=== PATIENT | female | born 1955 | race Caucasian/White ===

== ENCOUNTER 2022-07-23 09:31 | Emergency (ER) | payer MEDICARE ==
--- NOTE | 2022-07-23 09:52 | ERPHSYRPT ---
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 She states that the left side of her face felt a little numb. She states her tetanus status is up-to-date and she is not on any anticoagulation therapy. Patient was wearing glasses and there was small abrasions on the bridge of her nose and around the eye on the left side. She denies chest pain. She denies shortness of breath and she denies abdominal pain. She has some abrasions to the palmar aspect of her hand since she fell forward. Patient then got up, walked to her car and drove into work. We placed a cervical collar on her when she arrived to the emergency department. Occurred: just prior to arrival Reason for Fall: lost balance, tripped Injuries/Pain Location: head, face, neck, upper extremity (Abrasions bilateral hands palmar aspect), back (Low back and coccyx), pelvis (Bilateral hips left greater than right) Loss of Consciousness: unsure Quality: aching Severity of Pain-Max: moderate Severity of Pain-Current: moderate Modifying Factors: Improves With: movement Associated Symptoms (Fall): back pain (Low back), extremity injury, headache, neck pain Allergies/Adverse Reactions: meperidine [From Demerol] Allergy (Verified 07/23/22 09:54) Home Medications: Levothyroxine Sodium 88 Mcg [Synthroid 88 Mcg] 88 mcg PO DAILY 07/23/22 [History] Multivit-Minerals/Folic Acid [Multivitamin Gummies] 1 tab PO DAILY 07/23/22 [History] Travel Risk - International Travel Have you traveled outside of the country in past 3 weeks: No - Coronavirus Screening Are you exhibiting any of the following symptoms?: No Close contact with a COVID-19 positive Pt in past 14-21 Days: No - Review of Systems Constitutional: No Symptoms Eyes: No Symptoms Ears, Nose, & Throat: Other (Punctate bridge of nose laceration/abrasion left forehead abrasion) Respiratory: No Symptoms Cardiac: No Symptoms Abdominal/Gastrointestinal: No Symptoms Genitourinary Symptoms: No Symptoms Musculoskeletal: Back Pain, Neck Pain, Fall, Injury, Other (Bilateral hips left greater than right) Skin: Other (Abrasions to bilateral hands palmar aspect, nasal bridge and left forehead) Neurological: Headache Psychological: No Symptoms Endocrine: No Symptoms Hematologic/Lymphatic: No Symptoms Immunological/Allergic: No Symptoms All Other Systems: Reviewed and Negative - Past Medical History Pertinent Past Medical History: Yes - Past Surgical History Past Surgical History: Yes - Nursing Vital Signs Nursing Vital Signs: Initial Vital Signs Temperature 97.2 F 07/23/22 09:36 Pulse Rate 75 07/23/22 09:36 Blood Pressure 164/89 07/23/22 09:36 O2 Sat by Pulse Oximetry 99 07/23/22 09:36 Pain Scale Pain Intensity 5 - Nimco Coma Score Best Eye Response (Hay): (4) open spontaneously Best Verbal Response (Nimco): (5) oriented Best Motor Response (Hay): (6) obeys commands Hay Total: 15 - Physical Exam General Appearance: no apparent distress, alert, anxiety, thin Head Injury: ecchymosis, swelling, tenderness (Abrasion sites nasal bridge and periorbital on the left and left forehead) Eye Exam: PERRL/EOMI, eyes nml inspection ENT Exam: airway nml, nml ext.inspection, hearing grossly normal, No evidence of ENT injury Neck Exam: supple, trachea midline, full range of motion, normal alignment, normal inspection, other (We placed a c-collar on her on her neck. These findings were present prior to placing the c-collar) Respiratory/Chest Exam: normal breath sounds, crepitus, No chest tenderness, No respiratory distress, No ecchymosis Cardiovascular Exam: normal heart sounds, regular rate/rhythm Gastrointestinal Exam: soft, normal bowel sounds, No tenderness Rectal Exam: not done Back Exam: normal inspection, normal range of motion, No CVA tenderness, No vertebral tenderness Extremity Exam: normal range of motion, pelvis stable (Tenderness left hip), bony point tenderness (Coccyx), evidence of injury (Abrasions palmar aspect bilateral hands), hip tenderness (Bilateral, left greater than right.) Neurologic Exam: alert, oriented x 3, cooperative, 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, normal mood/affect, nml cerebellar function, nml station & gait, sensation nml Skin Exam: warm, dry, abrasion (Nasal bridge, periorbital left side, left forehead) SpO2 Interpretation: normal O2 Delivery: Room Air - Course Nursing assessment & vital signs reviewed: Yes Ordered Tests: Active Orders 24 hr Category Date Time Status CERVICAL SPINE WO CONTRAST [CT] Stat Exams 07/23/22 09:54 Completed FACIAL BONES WO CONTRAST [CT] Stat Exams 07/23/22 09:54 Completed HEAD WITHOUT CONTRAST [CT] Stat Exams 07/23/22 09:54 Completed HIP GARO (4V) INCL PELV IF DONE Stat Exams 07/23/22 09:56 Completed LUMBAR COMPLETE (MIN 4 VIEWS) Stat Exams 07/23/22 09:56 Completed SACRUM AND COCCYX Stat Exams 07/23/22 09:55 Completed - Progress Progress: improved, pain not gone completely, re-examined Progress Note: 07/23/22 11:52 This patient's medical issue is 1 of moderate complexity. The level complexity and the work-up performed was based on review of the patient's past medical history, review of the patient's medication list, review of the patient's drug allergy list, history of present illness and physical findings on examination. The work-up in this patient includes CT scan of the head, CT scan of the cervical spine, CT scan of the facial bones all without contrast. Plain x-rays of the lumbar spine, sacrum and coccyx, bilateral hips and pelvis. I reviewed the results of the work-up which were radiographic studies. They were all interpreted by the radiologist and the impression was reviewed by me. CT scan of the head without contrast shows no acute intracranial abnormality CT scan of the cervical spine without contrast shows no acute fracture or subluxation. There are degenerative changes present. CT scan of the facial bones without contrast shows no acute fracture or dislocation. X-ray of the sacrum and coccyx is negative for any acute fracture or dislocation. X-ray of the bilateral hips and pelvis shows no acute fracture or dislocation. X-ray of the lumbar spine shows no acute fracture or subluxation. There are degenerative changes noted. The patient was asked multiple times if she needed something for pain control. She stated she definitely did not want any narcotics. She also refused ibuprofen and Toradol. 07/23/22 12:16 Procedure note: Timeout performed at 12:10 PM after cleaning each of the sites and no foreign bodies remained and no active bleeding present, that were either deep abrasions versus very superficial lacerations that are short and intact, it appears that the sites in the upper lip 0.5 cm, nasal bridge 0.5 cm and left forehead 1 cm showed no active bleeding but we opted to cover each of the sites with benzoin, Dermabond, and half-inch Steri-Strips. Counseled pt/family regarding: diagnosis, need for follow-up, rad results Medical Desision Making - Diagnostic Testing Diagnostic test were ordered, analyzed, and reviewed by me: Yes Radiological Interpretation: Reviewed by me, Teleradiologist Report - Risk of complications The pt has a mod risk of morbidity or mortality based on: Need for prescription drug management - Departure Departure Disposition: Home Clinical Impression: Fall with significant injury, Facial laceration Condition: Stable Critical Care Time: No [facility] - Follow up/PCP as directed Additional Instructions: Take your antibiotics as prescribed. Keep the Steri-Strips in place until they fall off on their own. Keep the Steri-Strips site dry until tomorrow morning, 07/24/2022 then may shower daily thereafter and blot dry or use a hairdryer to dry the Steri-Strip repair sites. Prescriptions: Cephalexin Mh 500 mg [Keflex 500 mg] 500 mg PO TID #15 cap
[2022-07-23 09:54] VITALS: PULSE 75
--- NOTE | 2022-07-23 10:57 | XRAY ---
Indication: Injury following fall. Headache and vision changes. Multiple contiguous axial images obtained through the head without contrast. Comparison: None Age-appropriate global atrophy. Basal ganglia demonstrates small lacunar infarcts bilaterally. No acute intracranial hemorrhage, abnormal extra-axial fluid collection, or mass effect. Fourth ventricle is midline without hydrocephalus. Bony calvarium intact. Visualized paranasal sinuses and mastoid air cells are clear. Impression: Bilateral basal ganglia remote lacunar infarcts. No acute intracranial abnormalities.
--- NOTE | 2022-07-23 10:59 | XRAY ---
Indication: Injury following fall. Headache and vision change. Multiple contiguous axial images obtained through the facial bones. Sagittal and coronal reformatted images obtained. Comparison: None A few dental amalgams reduces beam artifact limiting these levels. No acute fracture, suspicious bony lesions, or radiopaque foreign body. Orbits including roof, ray, and floors intact. Minimal mucosal thickening floor of both maxillary sinuses. Remaining paranasal sinuses and nasal passages are clear. Mild nasal septal deviation to the right. CT head and CT cervical spine reported separately. Impression: Negative acute fracture. Incidental minimal paranasal sinus disease and nasal septal deviation.
--- NOTE | 2022-07-23 11:01 | XRAY ---
Indication: Injury following fall. Headache and vision change. Multiple contiguous axial images obtained through the cervical spine. Sagittal and coronal reformatted images obtained. Comparison: None Axial images negative for acute fracture, suspicious bony lesions, or spinal canal stenosis. Minimal C4-C7 degenerative end plate spurring. Facets are symmetric. Sagittal and coronal reformatted images demonstrates normal alignment. Minimal C3-C7 disc space narrowing. No acute compression fracture, sublocation, or jumped facet. Normal appearing cranial cervical junction. Visualized noncontrasted soft tissues including lung apices are unremarkable. Impression: Negative acute fracture/subluxation. Incidental minimal multilevel degenerative changes.
--- NOTE | 2022-07-23 11:47 | XRAY ---
Indication: Status post fall. Comparison: None 2 view left and right hip demonstrates osteopenia. No other bony, articular, or soft tissue abnormalities.
--- NOTE | 2022-07-23 11:47 | XRAY ---
Indication: Status post fall. Comparison: None 5 view lumbar spine demonstrates 5 lumbar segments with hypoplastic T12 ribs in normal alignment with osteopenia and mild bilateral L5-S1 degenerative facet hypertrophy. No other bony, articular, or soft tissue abnormalities.
--- NOTE | 2022-07-23 11:47 | XRAY ---
Indication: Status post fall. Comparison: None 3 view sacrum/coccyx demonstrates osteopenia. No other bony, articular, or soft tissue abnormalities.
[2022-07-23] MEDS ORDERED: KEFLEX 500 MG PO ONE (12:20)
[2022-07-23 12:21] VITALS: BP 130/78; O2SAT 98
[2022-07-23] MEDS ORDERED: KEFLEX 500 MG ONE (12:28)
== END 2022-07-23 12:33 | disposition home or self-care (01) ==
LOC: ED 09:31
DX: S01.511A Laceration without foreign body of lip, initial encounter (principal); S01.21XA Laceration without foreign body of nose, initial encounter; S01.81XA Laceration without foreign body of other part of head, initial encounter; W19.XXXA Unspecified fall, initial encounter; R51.9 Headache, unspecified; M25.552 Pain in left hip; M25.551 Pain in right hip; M54.50 Low back pain, unspecified; Z79.899 Other long term (current) drug therapy
CPT/HCPCS: 12011; 70450; 70486; 72110; 72125; 72220; 73522; 99283; L0172; A9270-GY

== ENCOUNTER 2022-10-15 13:11 | Emergency (ER) | payer MEDICARE ==
--- NOTE | 2022-10-15 13:17 | ERPHSYRPT ---
- History of Present Illness Time Seen by Provider: 10/15/22 13:17 Source: patient Exam Limitations: no limitations Physician History: This is an ambidextrous 67-year-old white female patient who states that she was attempting to cut a zip tie of an item and the blade went into the first webspace of the left hand palmar aspect. Patient's tetanus status is not up-to-date. Patient has full neurovascular function. Occurred: just prior to arrival Method of Injury: other (Knife blade to left palm first webspace) Quality: stabbing Severity of Pain-Max: mild Severity of Pain-Current: mild Extremities Pain Location: hand: left (Palmar aspect, first webspace), thumb: right Modifying Factors: Improves With: nothing Associated Symptoms: none Allergies/Adverse Reactions: meperidine [From Demerol] Allergy (Verified 10/15/22 14:02) Home Medications: Levothyroxine Sodium 88 Mcg [Synthroid 88 Mcg] 88 mcg PO DAILY 07/23/22 [History] Multivit-Minerals/Folic Acid [Multivitamin Gummies] 1 tab PO DAILY 07/23/22 [History] Hx Influenza Vaccination/Date Given: Yes Travel Risk - International Travel Have you traveled outside of the country in past 3 weeks: No - Coronavirus Screening Are you exhibiting any of the following symptoms?: No Close contact with a COVID-19 positive Pt in past 14-21 Days: No - Vaccine Status Have you recieved a Covid-19 vaccination: Yes 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: [employer] - Vaccination Dates Date of 2cond Vaccination (if applicable): 2020 - Review of Systems Constitutional: No Symptoms Eyes: No Symptoms Ears, Nose, & Throat: No Symptoms Respiratory: No Symptoms Cardiac: No Symptoms Abdominal/Gastrointestinal: No Symptoms Genitourinary Symptoms: No Symptoms Musculoskeletal: No Symptoms Skin: Other (Laceration 1.5 cm palmar aspect left hand first interdigital space) Neurological: No Symptoms Psychological: No Symptoms Endocrine: No Symptoms Hematologic/Lymphatic: No Symptoms Immunological/Allergic: No Symptoms All Other Systems: Reviewed and Negative - Past Medical History Pertinent Past Medical History: Yes Endocrine Medical History: Hypothyroidism - Past Surgical History Past Surgical History: Yes Female Surgical History: Hysterectomy - Social History Smoking Status: Never smoker Exposure to second hand smoke: No Drug Use: none Patient Lives Alone: Yes - Nursing Vital Signs Nursing Vital Signs: Initial Vital Signs Temperature 98.1 F 10/15/22 13:54 Pulse Rate 72 10/15/22 13:54 Respiratory Rate 17 10/15/22 13:54 Blood Pressure 152/84 10/15/22 13:54 O2 Sat by Pulse Oximetry 98 10/15/22 13:54 Pain Scale Pain Intensity 7 - Physical Exam General Appearance: no apparent distress, alert, anxiety Eyes, Ears, Nose, Throat Exam: normal ENT inspection, moist mucous membranes Neck Exam: normal inspection, non-tender, supple, full range of motion Cardiovascular/Respiratory Exam: chest non-tender, no respiratory distress Abdominal Exam: non-tender Back Exam: normal inspection, normal range of motion, No CVA tenderness, No vertebral tenderness Shoulder Exam: normal inspection, non-tender, no evidence of injury, normal ROM Elbow/Forearm Exam: normal inspection, non-tender, no evidence of injury, normal ROM Wrist Exam: normal inspection, non-tender, no evidence of injury, normal ROM Hand Exam: laceration (1.5 cm first interdigital space palmar aspect laceration left hand. Patient neurovascular intact. No evidence of tendon injury), soft tissue tenderness, No deformity Neuro/Tendon Exam: normal sensation, normal motor functions, normal tendon functions, responds to pain, no evidence tendon injury, No sensory deficit Mental Status Exam: alert, oriented x 3, cooperative Skin Exam: normal color, warm, dry, laceration (See above hand description) SpO2 Interpretation: normal O2 Delivery: Room Air Procedures - Laceration/Wound Repair Left Volar Hand Time of Procedure: 14:30 Wound Location: Left, hand (First interdigital space palmar aspect) Wound Length (cm): 1.5 Wound's Depth, Shape: linear Wound Explored: clean Irrigated: Yes (Wound explored to the base in a bloodless field and no foreign body noted.) Hibiclens Prep: Yes Anesthesia: 1% Lidocaine Volume Anesthetic (ccs): 2 Wound Repaired With: sutures Suture Size/Type: 3-0, prolene Number of Sutures: 3 Layer Closure?: No Progress: 10/15/22 14:42 After repair performed, emergency room nurse cleaned the site, dry the site, placed a thin layer bacitracin ointment and a pressure dressing was applied. Patient tolerated the procedure well - Course Nursing assessment & vital signs reviewed: Yes Ordered Tests: Medication Summary Discontinued Medications Generic Name Dose Route Start Last Admin Trade Name Lior PRN Reason Stop Dose Admin Bacitracin Zinc 0.9 each 10/15/22 14:12 10/15/22 14:18 Bacitracin Packet 1 Each Pckt TP 10/15/22 14:13 1 each STAT ONE Administration Bacitracin Zinc Confirm 10/15/22 14:15 Bacitracin Packet 1 Each Pckt Administered 10/15/22 14:16 Dose 1 each .ROUTE .STK-MED ONE Diphtheria/Tetanus/Acell Pertussis 0.5 ml 10/15/22 14:12 10/15/22 14:19 Tdap --Diph,Pertuss(Acell),Tet Vac/Pf 0.5 Ml Vial IM 10/15/22 14:13 0.5 ml .ONCE ONE Administration Diphtheria/Tetanus/Acell Pertussis Confirm 10/15/22 14:15 Tdap --Diph,Pertuss(Acell),Tet Vac/Pf 0.5 Ml Vial Administered 10/15/22 14:16 Dose 0.5 ml IM .STK-MED ONE - Progress Progress: improved, re-examined Progress Note: 10/15/22 14:42 This patient's medical issue is 1 of low complexity. Level complexity in the work-up performed is based on review of the patient's past medical history, review of the patient's medication list, review the patient's drug allergy list, history of present illness and physical findings on examination. No laboratory radiographic studies are necessary in this patient. Counseled pt/family regarding: diagnosis, need for follow-up Medical Desision Making - Diagnostic Testing Diagnostic test were ordered, analyzed, and reviewed by me: No - Risk of complications Minimal Risk: Minimal risk of morbidity - Departure Departure Disposition: Home Clinical Impression: Laceration of left hand Condition: Stable Critical Care Time: No Additional Instructions: Keep the current pressure dressing in place until the evening of 10/16/2022. At that time, you may remove the dressing and allow soapy water to rinse the laceration repair site. Blot dry or use a behavioral science chair to dry the site. Reapply thin layer of antibiotic ointment of choice then reapply a bandage. Suture removal in 8 to 10 days.
[2022-10-15 14:06] VITALS: BP 152/84; PULSE 72; RESP 17; TEMP 98.1; O2SAT 98
[2022-10-15] MEDS ORDERED: BACIGUENT PACKET TP ONE (14:12)
[2022-10-15] MEDS ORDERED: Adacel Vial IM ONE ×2 (14:12→14:15)
[2022-10-15] MEDS ORDERED: BACIGUENT PACKET ONE (14:15)
== END 2022-10-15 15:29 | disposition home or self-care (01) ==
LOC: ED 13:11
DX: S61.412A Laceration without foreign body of left hand, initial encounter (principal); W26.0XXA Contact with knife, initial encounter; Z79.899 Other long term (current) drug therapy
CPT/HCPCS: 12001; 90471; 90715; 99282; A9270-GY